=== PATIENT | male | born 1975 | race Caucasian/White ===

== ENCOUNTER 2024-03-20 07:19 | Day surgery (SDC) | payer BC ==
[~2024-03-20] VITALS: Ht 182.9 cm; Wt 68.5 kg
[~2024-03-20 07:19] MED LIST: IBLOOD GLUCOSE TEST STRIP 1 EA TEST VI PRN; LACTATED RINGER'S 1,000 ML IV SCH; LIDOCAINE HCL 1% 5 ML SDV INJ ONE; MIDAZOLAM HCL 5 MG/5 ML VIAL IV PRN; fentaNYL citrate 100 MCG/2 ML VIAL IV PRN
--- NOTE | 2024-03-20 07:31 | NUR ---
GREETED PT UPON ARRIVAL TO DEPARTMENT. SHORT INTERACTION WITH THERAPY ANIMAL. PT EXPRESSED EXHIBIT LOWER SIGNS OF EXHIBIT.
[2024-03-20 07:44] VITALS: BP 125/84
[2024-03-20] MEDS ORDERED: ADVIL100 M1 PO (07:46)
[2024-03-20] MEDS ORDERED: MIDAZOLAM HCL 5 MG/5 ML VIAL ONE (07:52)
[2024-03-20] MEDS ORDERED: fentaNYL citrate 100 MCG/2 ML VIAL ONE (07:52)
--- NOTE | 2024-03-20 08:39 | NUR ---
03/20/24 0839 Anna Coombs 0831-PT ARRIVES TO PACU RESTING ON LT SIDE, PT AWAKENS TO VOICE, DENIES PAIN OR NAUSEA, ENCOURAGED TO PASS GAS, PT FALLS BACK TO SLEEP EASILY. VSS ON RA, RR EVEN AND UNLABORED.
[2024-03-20 09:01] VITALS: BP 93/66
--- NOTE | 2024-03-21 07:23 | OR ---
[facility] [address], [place] [address] Signed DATE OF OPERATION: 03/20/2024 SURGEON: Sara Krishnan MD PREOPERATIVE DIAGNOSIS: Screening. POSTOPERATIVE DIAGNOSES: 1. Minimal sigmoid diverticulosis. 2. Enlarged prostate, left greater than right. PROCEDURE: Colonoscopy without biopsy. ESTIMATED BLOOD LOSS: None. INDICATIONS: Cata is a 48-year-old gentleman, asked to see me for his initial screening colonoscopy. He has no lower GI complaints. There is no family history of colon cancer or polyps. Cata told me he has made great strides to improve his health over the last two years. He has become very inquisitive. He has been online reading. When I gave him the brochure on colonoscopy, he was quite familiar. There is risk including, but not limited to gas bloating, crampy abdominal pain, bleeding, perforation requiring surgery and missed diagnosis. We also reviewed the written instructions for a bowel prep line by line. He also understands the need for IV conscious sedation. He understands an adult person has to take him home afterwards. He had expressed understanding and wished to proceed. DESCRIPTION OF PROCEDURE: Cata was taken into our endoscopy suite and placed in the left lateral decubitus position. He was given a total of 5 mg of Versed and 125 mcg of fentanyl. A digital rectal exam was performed. There were no external hemorrhoids. He had good sphincter tone. There were no masses. His prostate is indurated and swollen. The left more than the right. The adult colonoscope was introduced and advanced all around into the cecum under direct visualization of the camera without difficulty. His prep was quite excellent. We could easily see the appendiceal orifice and the ileocecal valve. The scope was then slowly withdrawn. We took several pictures throughout for photodocumentation. He had just a few diverticula in the sigmoid colon. They are on the small side, few in number and scattered about. Once in the rectum, the scope was Electronically Signed By: SARA KRISHNAN MD 03/21/24 0723 PATIENT NAME: CATA MIMS OPERATIVE REPORT DATE OF : 75 REPORT #: [id number] PHYSICIAN: SARA KRISHNAN MD PCP: DALIA HERRERA REPORT IS CONFIDENTIAL AND NOT TO BE RELEASED WITHOUT AUTHORIZATION [facility] [address], [place] [address] Signed retroflexed and there was no additional pathology noted above the anal canal. After this, the gas was suctioned out and the colonoscope removed. Cata tolerated the procedure quite well. RECOMMENDATIONS: Cata can return in 10 years for repeat screening colonoscopy. MD YASSINE Boogie/LAMARL /[id number] cc: Dalia Krishnan MD Copies: DALIA HERRERA ANDREW L MD ~ Electronically Signed By: SARA KRISHNAN MD 03/21/24 0723 PATIENT NAME: CATA MIMS OPERATIVE REPORT DATE OF : 75 REPORT #: [id number] PHYSICIAN: SARA KRISHNAN MD PCP: DALIA HERRERA PAC REPORT IS CONFIDENTIAL AND NOT TO BE RELEASED WITHOUT AUTHORIZATION
== END 2024-03-20 09:15 | disposition home or self-care (01) ==
LOC: DS 07:19 → DSVR 07:20 → DS 08:45
PROVIDERS: ATTEND Colon & Rectal Surgery
PROC: 0DJD8ZZ Inspection of Lower Intestinal Tract, Via Natural or Artificial Opening Endoscopic (ICD-10-PCS; principal; 2024-03-20 08:45)
DX: Z12.11 Encounter for screening for malignant neoplasm of colon (principal); K57.30 Diverticulosis of large intestine without perforation or abscess without bleeding; N40.0 Benign prostatic hyperplasia without lower urinary tract symptoms; F32.A Depression, unspecified; E55.9 Vitamin D deficiency, unspecified; Z87.898 Personal history of other specified conditions
CPT/HCPCS: G0500; J2250; J3010; J7121